=== PATIENT | female | born 1965 | race Two or more races ===

== ENCOUNTER 2018-07-05 05:03 | Inpatient (IN) | payer OTHER ==
[~2018-07-05] VITALS: Ht 172.7 cm; Wt 88.5 kg
[2018-07-05] VITALS (12 sets, daily range): BP systolic 84–120; BP diastolic 53–80
[2018-07-05 07:28] LABS: BASOPHILS # (AUTO) 0.1 /CMM (0.0-0.2); BASOPHILS % (AUTO) 0.6 % (0.0-2.0); EOSINOPHILS % (AUTO) 5.1 % (0.0-6.0); HEMATOCRIT 38 % (33-45); HEMOGLOBIN 12.8 g/dL (11.5-14.8); LYMPHOCYTES # (AUTO) 3.4 /CMM (0.8-4.8); LYMPHOCYTES % (AUTO) 31.3 % (20.0-44.0); MEAN CORPUSCULAR HGB CONC 34 g/dl (31.0-36.0); MEAN CORPUSCULAR VOLUME 83 fL (82-100); MONOCYTES # (AUTO) 0.7 /CMM (0.1-1.30); MONOCYTES % (AUTO) 6.2 % (2.0-12.0); NEUTROPHILS # (AUTO) 6.1 /CMM (1.8-8.9); NEUTROPHILS % (AUTO) 56.8 % (43.0-81.0); PLATELET COUNT (AUTO) 257 /CMM (150-450); RED BLOOD CELL COUNT(AUTO) 4.61 MIL/uL (4.0-5.2); WHITE BLOOD COUNT (AUTO) 10.7 K/uL (4.3-11.0)
[2018-07-05] MEDS ORDERED: BUPIVACAINE 0.5 % PF 150 MG/30 ML VIAL ONE ×2 (07:48→08:10)
[2018-07-05] MEDS ORDERED: BACITRACIN 50000 UNITS/VIAL ONE (07:48)
[2018-07-05] MEDS ORDERED: TRANEXAMIC ACID 3,000 MG in SODIUM CHLORIDE IRRIG SOLUTION 70 ML IR ONE (08:00)
[2018-07-05] MEDS ORDERED: BUPIVACAINE 0.75% DEXT-PF 2 ML AMPUL ONE (08:09)
[2018-07-05] MEDS ORDERED: MIDAZOLAM HCL 2 MG/2ML VIAL ONE (08:10)
[2018-07-05] MEDS ORDERED: MORPHINE SULFATE/PF 10 MG/10ML (1MG/ML) AMPUL ONE (08:10)
[2018-07-05 08:17] LABS: ALBUMIN 3.3 g/dL (3.4-5.0); BILIRUBIN,TOTAL 0.3 mg/dL (0.2-1.0); CALCIUM, SERUM 8.7 mg/dL (8.5-10.1); POTASSIUM 3.8 mmol/L (3.5-5.1); TOTAL PROTEIN, SERUM 6.3 g/dL (6.4-8.2)
[2018-07-05] MEDS ORDERED: HYDR-3028 PO (11:42)
[2018-07-05] MEDS ORDERED: FLAX100032 PO (11:42)
[2018-07-05] MEDS ORDERED: CALC200T42 PO (11:42)
[2018-07-05] MEDS ORDERED: CHOL50004 PO (11:42)
[2018-07-05] MEDS ORDERED: LORA2TAB PO (11:42)
[2018-07-05] MEDS ORDERED: TEMA30CA PO (11:42)
[2018-07-05] MEDS ORDERED: SUMA100T16 PO (11:42)
[2018-07-05] MEDS ORDERED: MULT-24 PO (11:42)
[2018-07-05] MEDS ORDERED: BUPR-96 PO (11:42)
[2018-07-05] MEDS ORDERED: SIME80TA15 PO (11:42)
[2018-07-05] MEDS ORDERED: LANS15CA18 PO (11:42)
[2018-07-05] MEDS ORDERED: PROP40TA7 PO (11:42)
[2018-07-05] MEDS ORDERED: HYDR-4354 PO (11:42)
[2018-07-05] MEDS ORDERED: HYDR-3980 PO (11:44)
[2018-07-05] MEDS ORDERED: RIVA10TA PO (11:44)
[2018-07-05] MEDS: IV D5/0.45 NACL 1,000 ML IV PRN ×2 (12:57→20:37)
[2018-07-05] MEDS ORDERED: NALOXONE HCL 0.4 MG/ML AMPUL IV PRN (13:00)
[2018-07-05] MEDS ORDERED: SENOKOT 8.6 MG TABLET PO PRN (13:00)
[2018-07-05] MEDS ORDERED: DULCOLAX 10 MG/SUPP.RECT RC PRN (13:00)
[2018-07-05] MEDS ORDERED: COLACE 250 MG CAPSULE PO PRN (13:00)
[2018-07-05] MEDS ORDERED: TYLENOL 650 MG TABLET PO PRN (13:00)
[2018-07-05] MEDS ORDERED: AMBIEN 5 MG TABLET PO PRN (13:00)
[2018-07-05] MEDS: HYDROCODONE/APAP 10/325MG 1 EA TABLET PO PRN ×2 (13:36→21:21)
[2018-07-05] MEDS ORDERED: KEY,NONCONTROL,TO KEEP IN PYXI 1 EA MC ONE (13:43)
[2018-07-05] MEDS: HYDROMORPHONE MDV 30 MG in IV NS 0.9% 15 ML, PCA TOTAL VOLUME 1 BAG IV PRN ×3 (14:17)
[2018-07-05] MEDS ORDERED: SIMETHICONE 80 MG TAB.CHEW PO PRN (15:00)
[2018-07-05] MEDS ORDERED: SUMATRIPTAN SUCCINATE 25 MG TABLET PO PRN (15:30)
[2018-07-05] MEDS ORDERED: TEMAZEPAM 15 MG CAPSULE PO PRN (15:30)
[2018-07-05] MEDS: CALCIUM CITRATE(CITRACAL) /VITAMIN D 1 TAB TABLET PO SCH (16:14)
[2018-07-05] MEDS: ANCEF 1 G in IV D5W 50 ML IV SCH ×2 (16:14→23:01)
[2018-07-05] MEDS: PROPRANOLOL HCL 40 MG TABLET PO SCH (16:14)
[2018-07-05] MEDS: ZOFRAN 4mg/2ML IV PRN ×2 (16:16→20:17)
[2018-07-05] MEDS ORDERED: RIVAROXABAN 10 MG TABLET PO SCH (17:00)
[2018-07-05] MEDS: RIVAROXABAN 10 MG TABLET PO SCH (21:12)
[2018-07-05] MEDS ORDERED: hydrOXYzine PAMOATE 25 MG CAPSULE PO SCH (22:00)
[2018-07-05] MEDS ORDERED: MAG HYDROX/AL HYDROX/SIMETH 30 ML UDC PO PRN (22:00)
[2018-07-05] MEDS ORDERED: oxyCODONE HCL SR 10MG TAB.SR.12H PO ONE (22:00)
[2018-07-05] MEDS ORDERED: diphenhydrAMINE HCL 25 MG CAPSULE PO PRN (22:00)
[2018-07-06] VITALS (7 sets, daily range): BP systolic 106–131; BP diastolic 66–99
[2018-07-06] MEDS: HYDROCODONE/APAP 10/325MG 1 EA TABLET PO PRN ×4 (00:23→09:46)
[2018-07-06] MEDS: IV D5/0.45 NACL 1,000 ML IV PRN ×3 (04:10→23:31)
[2018-07-06 06:23] LABS: BASOPHILS % (AUTO) 0.2 % (0.0-2.0); EOSINOPHILS % (AUTO) 0.6 % (0.0-6.0); HEMATOCRIT 35 % (33-45); HEMOGLOBIN 11.9 g/dL (11.5-14.8); LYMPHOCYTES # (AUTO) 1.5 /CMM (0.8-4.8); MEAN CORPUSCULAR HGB CONC 34 g/dl (31.0-36.0); MEAN CORPUSCULAR VOLUME 83 fL (82-100); MONOCYTES % (AUTO) 7.2 % (2.0-12.0); PLATELET COUNT (AUTO) 224 /CMM (150-450); RED BLOOD CELL COUNT(AUTO) 4.26 MIL/uL (4.0-5.2); WHITE BLOOD COUNT (AUTO) 13.6 K/uL (4.3-11.0)
[2018-07-06 06:49] LABS: CALCIUM, SERUM 7.8 mg/dL (8.5-10.1); CREATININE 0.8 mg/dL (0.6-1.3); MAGNESIUM 1.7 mg/dL (1.8-2.4); PHOSPHORUS 2.4 mg/dL (2.5-4.9); POTASSIUM 4.3 mmol/L (3.5-5.1)
[2018-07-06] MEDS ORDERED: FLAXSEED OIL PO SCH (09:00)
[2018-07-06] MEDS: BUPROPION XL 150 MG TAB.ER.24 PO SCH (09:46)
[2018-07-06] MEDS: PANTOPRAZOLE 40 MG TABLET.DR PO SCH (09:47)
[2018-07-06] MEDS: PROPRANOLOL HCL 40 MG TABLET PO SCH ×2 (09:47→16:46)
[2018-07-06] MEDS: DOCUSATE SODIUM 100 MG CAPSULE PO SCH ×2 (09:48→16:45)
[2018-07-06] MEDS: MULTIVITAMINS,THERAGRAN 1 UDTAB TABLET PO SCH (09:48)
[2018-07-06] MEDS: CHOLECALCIFEROL 1,000 UNIT TABLET (VIT D3) PO SCH (09:52)
[2018-07-06] MEDS: CALCIUM CITRATE(CITRACAL) /VITAMIN D 1 TAB TABLET PO SCH (09:54)
[2018-07-06] MEDS: Magnesium 1GM/D5W 100ML PREMIX 100 ML IV SCH ×2 (10:23→11:32)
[2018-07-06] MEDS ORDERED: K PHOS NEUTRAL 250 MG TABLET PO ONE (10:30)
[2018-07-06] MEDS: LORAZEPAM 1 MG TABLET PO SCH (12:34)
[2018-07-06] MEDS: HYDROMORPHONE 1 MG/1 ML DISP.SYRIN SQ PRN (13:52)
[2018-07-06] MEDS ORDERED: KEY,NONCONTROL,TO KEEP IN PYXI 1 EA MC ONE (15:43)
[2018-07-06] MEDS: HYDROMORPHONE MDV 30 MG in IV NS 0.9% 15 ML, PCA TOTAL VOLUME 1 BAG IV PRN ×3 (15:59)
[2018-07-06] MEDS: RIVAROXABAN 10 MG TABLET PO SCH (16:46)
[2018-07-06] MEDS ORDERED: hydrOXYzine PAMOATE 25 MG CAPSULE PO PRN (21:00)
[2018-07-06] MEDS: oxyCODONE HCL SR 10MG TAB.SR.12H PO SCH (21:12)
[2018-07-07] MEDS: HYDROMORPHONE 1 MG/1 ML DISP.SYRIN SQ PRN ×4 (02:57→21:56)
[2018-07-07 06:26] LABS: BASOPHILS % (AUTO) 0.2 % (0.0-2.0); HEMATOCRIT 34 % (33-45); HEMOGLOBIN 11.5 g/dL (11.5-14.8); LYMPHOCYTES % (AUTO) 14.9 % (20.0-44.0); MEAN CORPUSCULAR HGB CONC 34 g/dl (31.0-36.0); MEAN CORPUSCULAR VOLUME 83 fL (82-100); MONOCYTES # (AUTO) 1.3 /CMM (0.1-1.30); MONOCYTES % (AUTO) 9.8 % (2.0-12.0); NEUTROPHILS # (AUTO) 9.6 /CMM (1.8-8.9); NEUTROPHILS % (AUTO) 72.1 % (43.0-81.0); PLATELET COUNT (AUTO) 215 /CMM (150-450); RED BLOOD CELL COUNT(AUTO) 4.12 MIL/uL (4.0-5.2); WHITE BLOOD COUNT (AUTO) 13.4 K/uL (4.3-11.0)
[2018-07-07 07:15] LABS: CALCIUM, SERUM 7.8 mg/dL (8.5-10.1); CREATININE 0.7 mg/dL (0.6-1.3); PHOSPHORUS 2.3 mg/dL (2.5-4.9); POTASSIUM 3.7 mmol/L (3.5-5.1)
[2018-07-07] MEDS: IV D5/0.45 NACL 1,000 ML IV PRN (07:26)
[2018-07-07] MEDS: PANTOPRAZOLE 40 MG TABLET.DR PO SCH (07:27)
[2018-07-07 08:00] VITALS: BP 100/63
[2018-07-07] MEDS: MULTIVITAMINS,THERAGRAN 1 UDTAB TABLET PO SCH (08:12)
[2018-07-07] MEDS: CHOLECALCIFEROL 1,000 UNIT TABLET (VIT D3) PO SCH (08:12)
[2018-07-07] MEDS: BUPROPION XL 150 MG TAB.ER.24 PO SCH (08:12)
[2018-07-07] MEDS: DOCUSATE SODIUM 100 MG CAPSULE PO SCH ×2 (08:12→16:15)
[2018-07-07] MEDS: PROPRANOLOL HCL 40 MG TABLET PO SCH ×2 (08:13→16:15)
[2018-07-07] MEDS: oxyCODONE HCL SR 10MG TAB.SR.12H PO SCH ×2 (08:13→21:02)
[2018-07-07] MEDS: CALCIUM CITRATE(CITRACAL) /VITAMIN D 1 TAB TABLET PO SCH (08:15)
[2018-07-07] MEDS: LORAZEPAM 1 MG TABLET PO SCH (12:15)
[2018-07-07] MEDS ORDERED: K PHOS NEUTRAL 250 MG TABLET PO ONE (13:00)
[2018-07-07 16:00] VITALS: BP 93/62
[2018-07-07] MEDS: RIVAROXABAN 10 MG TABLET PO SCH (16:16)
[2018-07-07] MEDS ORDERED: KEY,NONCONTROL,TO KEEP IN PYXI 1 EA MC ONE (17:56)
[2018-07-07 20:00] VITALS: BP 105/70
[2018-07-07] MEDS: HYDROCODONE/APAP 10/325MG 1 EA TABLET PO PRN (20:16)
[2018-07-08] MEDS: HYDROMORPHONE 1 MG/1 ML DISP.SYRIN SQ PRN ×4 (04:36→16:23)
[2018-07-08] MEDS: oxyCODONE HCL SR 10MG TAB.SR.12H PO SCH ×2 (04:49→13:00)
[2018-07-08 06:53] LABS: CALCIUM, SERUM 7.9 mg/dL (8.5-10.1); CREATININE 0.8 mg/dL (0.6-1.3); POTASSIUM 3.8 mmol/L (3.5-5.1)
[2018-07-08] MEDS: PANTOPRAZOLE 40 MG TABLET.DR PO SCH (07:47)
[2018-07-08] MEDS: CHOLECALCIFEROL 1,000 UNIT TABLET (VIT D3) PO SCH (08:09)
[2018-07-08] MEDS: DOCUSATE SODIUM 100 MG CAPSULE PO SCH ×2 (08:10→16:22)
[2018-07-08] MEDS: PROPRANOLOL HCL 40 MG TABLET PO SCH ×2 (08:10→16:22)
[2018-07-08] MEDS: BUPROPION XL 150 MG TAB.ER.24 PO SCH (08:10)
[2018-07-08] MEDS: MULTIVITAMINS,THERAGRAN 1 UDTAB TABLET PO SCH (08:10)
[2018-07-08] MEDS: CALCIUM CITRATE(CITRACAL) /VITAMIN D 1 TAB TABLET PO SCH (08:14)
[2018-07-08 08:52] VITALS: BP 112/68
[2018-07-08] MEDS: HYDROCODONE/APAP 10/325MG 1 EA TABLET PO PRN ×3 (10:40→18:29)
[2018-07-08] MEDS ORDERED: HYDR-4384 PO (11:22)
[2018-07-08] MEDS ORDERED: K PHOS NEUTRAL 250 MG TABLET PO ONE (11:30)
[2018-07-08] MEDS: LORAZEPAM 1 MG TABLET PO SCH (12:47)
[2018-07-08] MEDS: RIVAROXABAN 10 MG TABLET PO SCH (16:22)
[2018-07-08 16:43] VITALS: BP 117/77
[2018-07-08 20:00] VITALS: BP 111/60
== END 2018-07-08 18:30 | DRG 470 ==
LOC: DS 05:03 → MED 06:05 → TELE 14:40 → MED 07-06 08:31
PROVIDERS: ADMIT Specialist
PROC: 0SRD0J9 Replacement of Left Knee Joint with Synthetic Substitute, Cemented, Open Approach (ICD-10-PCS; principal; 2018-07-05)
DX: M17.12 Unilateral primary osteoarthritis, left knee (principal); E44.1 Mild protein-calorie malnutrition; G89.4 Chronic pain syndrome; K58.9 Irritable bowel syndrome, unspecified; G43.909 Migraine, unspecified, not intractable, without status migrainosus; E66.9 Obesity, unspecified; Z68.29 Body mass index [BMI] 29.0-29.9, adult; K21.9 Gastro-esophageal reflux disease without esophagitis
CPT/HCPCS: 36415; 80048-TC; 80053-TC; 83735-TC; 84100-TC; 84702-TC; 85025-TC; 85730-TC; 87081-TC; 88305-TC; 88311-TC; 97110-TC; 97116-TC; 97530-TC; 97760-TC; A4216; A4217; A6402; C1713; G0378; J0690; J1170; J2250; J2274; J2405; J2704; J3475; J3490; J7060; J7120; L1830; Q0163; Q0177